=== PATIENT | male | born 1930 | race African-American/Black ===

== ENCOUNTER 2017-05-10 16:11 | Observation (INO) | payer OTHER ==
[2017-05-10] MEDS ORDERED: SODIUM CHLORIDE 0.9% 1000 ML INFUS.BAG IV ONE (16:48)
--- NOTE | 2017-05-10 16:58 | PDOC ---
History of Present Illness - General Chief Complaint: Syncope/Near Syncope Stated Complaint: SYNCOPE Time Seen by Provider: 05/10/17 16:19 History Source: Patient, Family Exam Limitations: Clinical Condition - History of Present Illness Initial Comments: 05/10/17 16:55 87 y/o M with PMH osteoarthritis, prostate CA (s/p radiation seeding), who presents to the ED s/p syncopal episode. As per pt's sister, she was shopping with pt in [employer] this afternoon when he started to c/o dizziness. At the time, pt was also wearing a warm coat. His sister told him to sit down. When his sister returned, pt had slumped over onto the ground and she "thought he had ." He was on the ground for 3-4 minutes "in and out of consciousness, " and was subsequently helped up by [employer] staff. EMS was alerted and on arrival , pt's BP was 130/110. Sister denies head trauma or seizure like activity, but states pt has had decreased fluid intake during the week. Pt denies JOHANSEN, fever, chills, or changes in urinary or bowel function. Pt ambulates on his own at baseline and lives alone in [place]. Over the past week, he has been staying with his sister. PMH: as above PsxH: denies meds: denies allergies: NKDA FH: father- prostate CA, mother- dementia SH: retired; worked for a [employer] in the past. Never smoked. Drank 1 beer /day for many years, unable to quantify. Smoked marijuana intermittently. For updates on pt condition please call Stefanie (niece) cell: [phone] Past History - Past Medical History Allergies/Adverse Reactions: Allergies Allergy/AdvReac Type Severity Reaction Status Date / Time No Known Allergies Allergy Verified 05/10/17 16:23 Home Medications: Ambulatory Orders NK [No Known Home Medication] 05/10/17 COPD: No - Suicide/Smoking/Psychosocial Hx Smoking History: Current every day smoker Number of Cigarettes Smoked Daily: 2 If you are a former smoker, when did you quit?: 0 Information on smoking cessation initiated: No Hx Alcohol Use: No Drug/Substance Use Hx: No Substance Use Type: Marijuana Review of Systems - Review of Systems Able to Perform ROS?: Yes Is the patient limited Bolivian proficient: No Constitutional: Yes: Other (dehydration) Neurological: Yes: Dizziness All Other Systems: Reviewed and Negative *Physical Exam - Vital Signs Last Vital Signs Temp Pulse Resp BP Pulse Ox 97.7 F 90 18 129/75 100 05/10/17 16:11 05/10/17 16:11 05/10/17 16:11 05/10/17 16:11 05/10/17 16:11 - Physical Exam General Appearance: Yes: Nourished, Other (in no acute distress) HEENT: positive: EOMI, DARSHANA Neck: positive: Supple Respiratory/Chest: positive: Lungs Clear, Normal Breath Sounds Cardiovascular: positive: Regular Rhythm, Regular Rate, S1, S2 Vascular Pulses: Dorsalis-Pedis (R): 2+, Doralis-Pedis (L): 2+ Gastrointestinal/Abdominal: positive: Normal Bowel Sounds, Soft Musculoskeletal: positive: Normal Inspection Extremity: positive: Normal Inspection, Normal Range of Motion Integumentary: positive: Dry Neurologic: positive: duty engineer II-XII NML intact, Other (AAO x 2 (self, place)) Heart Score/ECG Review - ECG Impressions Comment:: 05/10/17 17:08 EKG: normal sinus, normal axis, rate ~80 ED Treatment Course - LABORATORY CBC & Chemistry Diagram: 05/10/17 16:54 05/10/17 16:53 Medical Decision Making - Medical Decision Making 05/10/17 17:09 87 y/o M with PMH osteoarthritis, prostate CA (s/p radiation seeding), who presents to the ED s/p syncopal episode. As per pt's sister, she was shopping with pt in [employer] this afternoon when he started to c/o dizziness. Likely vasovagal syncope 2/2 dehydration as pt with dizziness and warm from coat. Unlikely seizure - no seizure like activity witnessed, no post-ictal confusion. Pt status returned to baseline. EKG done to help r/o arrythmia. NSR, no significant changes noted. Will order the following CBC CMP Troponin will give 1L NS and reassess will also gauge pt's safety- if safe to go home if well 05/10/17 17:31 If pt for d/c later, should be able to go home without problem since living with sister would benefit from VNS 05/10/17 17:42 CBC WNL other labs pending 05/10/17 18:08 CMP, trop WNL will check orthostatics, walk pt see if stable - if stable, will check comfort on going home with sister 05/10/17 18:22 Orthostatics (-) after pt hydrated with 1 L 124/75, HR 70 lying down 142/73, 69 HR sitting 126/80, 84 HR standing however pt with unsteady gait, states he does not feel comfortable going home - for obs 05/10/17 18:28 Microblog sent 05/10/17 19:23 Case d/w Dr. Abdi for obs UA added *DC/Admit/Observation/Transfer Diagnosis at time of Disposition: Syncope Qualifiers: Syncope type: vasovagal syncope Qualified Code(s): R55 - Syncope and collapse - Discharge Dispostion Condition at time of disposition: Guarded Admit: Yes - Referrals Referrals: Carol López MD [Primary Care Provider] - - Patient Instructions - Post Discharge Activity
[2017-05-10 17:16] LABS: BASO % 0.4 % (0-2.0); EOS % 0.2 % (0-4.5); HEMATOCRIT 41.5 % (35.4-49); HEMOGLOBIN 14.3 GM/dL (11.7-16.9); LYMPH % 12.5 % (8-40); MCH 33.1 pg (25.7-33.7); MCHC 34.5 g/dl (32.0-35.9); MEAN CELL VOLUME 95.7 fl (80-96); MEAN PLT VOLUME 8.2 fl (7.5-11.1); NEUT % 74.9 % (42.8-82.8); PLATELET COUNT 243 K/MM3 (134-434); RBC 4.34 M/mm3 (4.00-5.60); RDW 14.8 % (11.9-15.9); WHITE BLOOD COUNT 4.4 K/mm3 (4.0-10.0)
[2017-05-10 17:50] LABS: ALBUMIN 3.4 g/dl (3.4-5.0); ANION GAP 13 (8-16); BILIRUBIN,TOTAL 0.5 mg/dL (0.2-1.0); BLOOD UREA NITROGEN 15 mg/dL (7-18); CALCIUM 9.1 mg/dL (8.5-10.1); CHLORIDE 98 mmol/L (98-107); CO2 26 mmol/L (21-32); CREATININE 1.2 mg/dL (0.7-1.3); GLUCOSE,RANDOM 100 mg/dL (74-106); POTASSIUM 4.2 mmol/L (3.5-5.1); SGOT/AST 34 U/L (15-37); SGPT/ALT 18 U/L (12-78); SODIUM 137 mmol/L (136-145); TOT PROT 6.9 g/dl (6.4-8.2)
[2017-05-10 17:52] LABS: ALK PHOS 111 U/L (45-117)
--- NOTE | 2017-05-10 18:11 | PDOC ---
Attending Attestation - HPI HPI: 05/10/17 18:13 The patient is a 87-year-old male with no significant past medical history, who presents to the emergency department s/p syncopal episode. Patient reports that he has not had heat at home recently and is staying with his sister. He reports they went to [facility] today where he began to feel dizzy after walking and eating. As per sister, the patient was wearing a heavy and warm jacket. Sister states the patient sat down while she went to shop, but the patient syncopized and fell to the ground when she returned. The sister states the patient was unresponsive on the ground for a few seconds. He denies any previous history of syncopes. The patient denies chest pain, shortness of breath, or headache. The patient denies fever, chills, nausea, vomit, diarrhea and constipation. The patient denies dysuria, frequency, urgency and hematuria. - Physicial Exam PE: 05/10/17 18:13 Vitals: Triage Vital signs reviewed General Appearance: no acute distress, well nourished well developed, Head: Atraumatic, normocephalic Eyes: Pupils equal reactive round, extraocular movement intact Throat: Posterior oropharynx without erythema, (+) dry mucous membranes Neck: Supple;No Nuchal rigidity Cardiac: Regular rate and rhythm, no murmurs, no rubs, no gallops, Lungs: Clear to auscultation bilateral, good air movement bilaterally, Abdomen: Soft, nondistended, normal bowel sounds, nontender to palpation Extremities: Full range of motion to all extremities, no cyanosis, clubbing, or edema Skin: Warm and dry, no rashes or lesions, no petechiae Neuro: AOX3; Cranial Nerves 2-12 grossly intact, Strength intact to all extremities, Sensation intact to all extremities Psych: normal mood, normal affect <Karen Preciado - Last Filed: 05/10/17 18:13> - Resident Resident Name: Corazon Tovar - ED Attending Attestation I have performed the following: I have examined & evaluated the patient, The case was reviewed & discussed with the resident, I agree w/resident's findings & plan, Exceptions are as noted - Medical Decision Making 05/10/17 18:11 87 years old with no significant past medical history presents to the emergency department with syncopal episode after eating a significant amount of fluid [place] and walking around wearing a heavy jacket. Patient had a classic prodrome of dizziness lightheadedness and feeling hot and sweaty sat down then had a brief few seconds of syncope with spontaneous return vital signs Here in the emergency Department patient has been's resting comfortably not complaining of any symptoms. His EKG with no ST elevations or T-wave inversions no evidence of Brugada WPW or prolonged QT. He has a ventricular rate of 80 with a NV interval of 164 with normal axis normal QT Interpreted by me He was not orthostatic on his vital signs and there is no obvious evidence of dehydration on his laboratory analysis I discussed with the patient observation overnight he feels unsteady and would prefer to be observed. 05/10/17 18:22 <Timo Figueroa - Last Filed: 05/10/17 18:26>
--- NOTE | 2017-05-10 19:47 | PN ---
Teaching Attending Note Name of Resident: Logan Benson ATTENDING PHYSICIAN STATEMENT I saw and evaluated the patient. I reviewed the resident's note and discussed the case with the resident. I agree with the resident's findings and plan as documented. SUBJECTIVE: 87 M with no pmhx. who presents with syncope. States he went to [facility] where he felt dizzy. Notes he felt this way after walking and eating. States he was wearing a heavy jacket/. States sister sat him down and went to shop, but when she returned he had syncopized and fell. Notes he was not responsive for several seconds. States he hasn't been diagnosed with diabetes yet, but feels likel maybe his "sugar" contributed to his Syncope OBJECTIVE: Physical: VS: Vital Signs Period Temp Pulse Resp BP Sys/Scott Pulse Ox Last 24 Hr 97.7 F 69-90 18 124-142/73-80 100 GEN: NAD, Resting in bed, AA0X3 HEENT: NCAT, PERRL, Throat without erythema or exudates CARD: RRR S1, S2 RESP: CTAB ABD: BSx4, NTD to palpation EXT: - C/C/E CBCD WBC 4.4 K/mm3 (4.0-10.0) 05/10/17 16:54 RBC 4.34 M/mm3 (4.00-5.60) 05/10/17 16:54 Hgb 14.3 GM/dL (11.7-16.9) 05/10/17 16:54 Hct 41.5 % (35.4-49) 05/10/17 16:54 MCV 95.7 fl (80-96) 05/10/17 16:54 MCHC 34.5 g/dl (32.0-35.9) 05/10/17 16:54 RDW 14.8 % (11.9-15.9) 05/10/17 16:54 Plt Count 243 K/MM3 (134-434) 05/10/17 16:54 MPV 8.2 fl (7.5-11.1) 05/10/17 16:54 CMP Sodium 137 mmol/L (136-145) 05/10/17 16:53 Potassium 4.2 mmol/L (3.5-5.1) 05/10/17 16:53 Chloride 98 mmol/L (98-107) 05/10/17 16:53 Carbon Dioxide 26 mmol/L (21-32) 05/10/17 16:53 Anion Gap 13 (8-16) 05/10/17 16:53 BUN 15 mg/dL (7-18) 05/10/17 16:53 Creatinine 1.2 mg/dL (0.7-1.3) 05/10/17 16:53 Creat Clearance w eGFR 57.27 (>60) 05/10/17 16:53 Random Glucose 100 mg/dL (74-106) 05/10/17 16:53 Calcium 9.1 mg/dL (8.5-10.1) 05/10/17 16:53 Total Bilirubin 0.5 mg/dL (0.2-1.0) 05/10/17 16:53 AST 34 U/L (15-37) 05/10/17 16:53 ALT 18 U/L (12-78) 05/10/17 16:53 Alkaline Phosphatase 111 U/L (45-117) 05/10/17 16:53 Total Protein 6.9 g/dl (6.4-8.2) 05/10/17 16:53 Albumin 3.4 g/dl (3.4-5.0) 05/10/17 16:53 CARDIAC ENZYMES Troponin I 0.02 ng/ml (0.00-0.05) 05/10/17 16:53 CXR: No Acute Process EKG: NSR, QtC 403 ASSESSMENT AND PLAN: 87 M with no pmhx who presents with loss of concioussness at [facility], being admitted for syncope eval. 1.) Loss of Concioussness - Vasovagal, Cardiogenic, neurogenic - CT HEAD wo Con - Trend Trop/EKG - Echo/Carotid - Orthostatics negative - TSh, B12, Folate - HgbA1c - Fingersticks 2.) Dvt Ppx - SCDS Place in Obs-Tele
--- NOTE | 2017-05-10 23:15 | HP ---
CHIEF COMPLAINT: Syncope PCP: HISTORY OF PRESENT ILLNESS: The patient has early stage alzheimers and has difficulty recalling the events of the day. Part of the following history is taken from the medical record. The patient is an 87 yo m w/ PMH prostate ca s/p radiation and seeding who was brought to the ED after having a syncopal episode. The patient was shopping at [employer] with his sister when he began to feel dizzy. He sat down on a bench and his sister left to finish her shopping. When she returned, she found him slumped over. Per the sister, the patient did not fall and did not hit his head. He was unresponsive and had a waxing and waning consciousness for approx. 3-4 minutes. Patient's sister denies seizure like activity, urinary or fecal incontinence. Patient denies CP, SOB, fevers, chills, nausea, vomiting, diarrhea. Patient does endorse decreased fluid intake over the past few days. Patient lives in [place] alone and does not feel comfortable going back there in his current state. ER course was notable for: (1) Troponin negative x1 (2) ED physician noted good response to IVF, but continued unsteady gait. (3) Recent Travel: none PAST MEDICAL HISTORY: see HPI PAST SURGICAL HISTORY: denies Social History: Smoking: denies Alcohol: drank previously, has since stopped Drugs: denies Family History: non-contributory Allergies No Known Allergies Allergy (Verified 05/10/17 16:23) HOME MEDICATIONS: Home Medications Medication Instructions Recorded NK [No Known Home Medication] 05/10/17 REVIEW OF SYSTEMS CONSTITUTIONAL: Absent: fever, chills, diaphoresis, malaise, loss of appetite, weight change HEENT: Absent: rhinorrhea, nasal congestion, throat pain, throat swelling, difficulty swallowing, mouth swelling, ear pain, eye pain, visual changes CARDIOVASCULAR: Absent: chest pain, syncope, palpitations, irregular heart rate, peripheral edema RESPIRATORY: Absent: cough, shortness of breath, dyspnea with exertion, orthopnea, wheezing, stridor, hemoptysis GASTROINTESTINAL: Absent: abdominal pain, abdominal distension, nausea, vomiting, diarrhea, constipation, melena, hematochezia GENITOURINARY: Absent: dysuria, frequency, urgency, hesitancy, hematuria, flank pain, genital pain MUSCULOSKELETAL: Absent: myalgia, arthralgia, joint swelling, back pain, neck pain SKIN: Absent: rash, itching, pallor HEMATOLOGIC/IMMUNOLOGIC: Absent: easy bleeding, easy bruising, lymphadenopathy, frequent infections ENDOCRINE: Absent: unexplained weight gain, unexplained weight loss, heat intolerance, cold intolerance NEUROLOGIC: Absent: headache, focal weakness or paresthesias, seizure, mental status changes , bladder or bowel incontinence PSYCHIATRIC: Absent: anxiety, depression, suicidal or homicidal ideation, hallucinations. PHYSICAL EXAMINATION Vital Signs - 24 hr 05/10/17 05/10/17 05/10/17 16:11 18:12 18:17 Temperature 97.7 F Pulse Rate 90 Pulse Rate [ 69 Right side Sitting] Pulse Rate [ 84 Right side Standing] Pulse Rate [ 70 70 Right side Supine] Respiratory 18 Rate Blood Pressure 129/75 Blood Pressure 142/73 [Right side Sitting] Blood Pressure 126/80 [Right side Standing] Blood Pressure 124/75 124/75 [Right side Supine] O2 Sat by Pulse 100 Oximetry (%) GENERAL: Awake, alert, and fully oriented, in no acute distress. HEAD: Normal with no signs of trauma. EYES: Pupils equal, round and reactive to light, extraocular movements intact, sclera anicteric, conjunctiva clear. No lid lag. EARS, NOSE, THROAT: oropharynx clear without exudates. Moist mucous membranes. NECK: Normal range of motion, supple without lymphadenopathy, JVD, or masses. LUNGS: Breath sounds equal, clear to auscultation bilaterally. No wheezes, and no crackles. No accessory muscle use. HEART: Regular rate and rhythm, normal S1 and S2 without murmur, rub or gallop. ABDOMEN: Soft, nontender, not distended, normoactive bowel sounds, no guarding, no rebound, no masses. No hepatomegaly or splenomegaly. UPPER EXTREMITIES: 2+ pulses, warm, well-perfused. No cyanosis. No clubbing. No peripheral edema. LOWER EXTREMITIES: 2+ pulses, warm, well-perfused. No calf tenderness. No peripheral edema. NEUROLOGICAL: Cranial nerves II-XII intact. Normal speech. Gait unstable with limp involving left leg. No shuffling. Strength 5/5 in all limbs PSYCHIATRIC: Cooperative. Good eye contact. Appropriate mood and affect. SKIN: Warm, dry, normal turgor, no rashes or lesions noted, normal capillary refill. Laboratory Results - last 24 hr 05/10/17 05/10/17 16:53 16:54 WBC 4.4 RBC 4.34 Hgb 14.3 Hct 41.5 MCV 95.7 MCH 33.1 MCHC 34.5 RDW 14.8 Plt Count 243 MPV 8.2 Neutrophils % 74.9 Lymphocytes % 12.5 Monocytes % 12.0 H Eosinophils % 0.2 Basophils % 0.4 Sodium 137 Potassium 4.2 Chloride 98 Carbon Dioxide 26 Anion Gap 13 BUN 15 Creatinine 1.2 Creat Clearance w eGFR 57.27 Random Glucose 100 Calcium 9.1 Total Bilirubin 0.5 AST 34 ALT 18 Alkaline Phosphatase 111 Troponin I 0.02 Total Protein 6.9 Albumin 3.4 ASSESSMENT/PLAN: The patient is an 87 yo m w/ distant PMH prostate ca who is being admitted for further workup for syncope. #Syncopal episode likely 2/2 vasovagal response r/o cardiac eitology -orthostatics negative in ED -Patient improved after 1L NS in ED -gait remains unstable -EKG shows NSR w/ nonspecific t wave changes -CXR negative -CT head negative -Physical therapy eval; patient may benefit from VNS -Echo in am -carotid duplex -UA -trend trop -B12, folate, A1c in AM #FEN -no fluids -lytes WNL -regular diet #Prophy -SCDs #Dispo -admit to tele Visit type - Emergency Visit Emergency Visit: Yes ED Registration Date: 05/10/17 Care time: The patient presented to the Emergency Department on the above date and was hospitalized for further evaluation of their emergent condition. - New Patient This patient is new to me today: Yes Date on this admission: 05/10/17 - Critical Care Critical Care patient: No Hospitalist Screening - Colonoscopy Questionnaire Colonoscopy Questionnaire: Colonoscopy Questionnaire - Patient: 50 - 75 years old and never had a screening colonoscopy: Unknown History of colon or rectal polyps, or CA: Unknown History of IBD, Crohn's disease or UC: Unknown History of abdominal radiation therapy as a child: Unknown - Relative: 1 with colon or rectal CA, or polyps at age 60 or younger: Unknown Colon or rectal CA diagnosed at age 45 or younger: Unknown Multiple relatives with colon or rectal CA: Unknown - Outcome: Screening Result: Negative Screen
[2017-05-10 23:59] LABS: URINE APPEARANCE CLOUDY; URINE BILIRUBIN NEGATIVE (NEGATIVE); URINE BLOOD NEGATIVE (NEGATIVE); URINE COLOR AMBER; URINE GLUCOSE (UA) NEGATIVE (NEGATIVE); URINE KETONE 1+ (NEGATIVE); URINE NITRITE NEGATIVE (NEGATIVE)
[2017-05-11 00:11] LABS: URINE LEUK ESTERASE 3+ (NEGATIVE); URINE PROTEIN 1+ (NEGATIVE)
[2017-05-11 00:12] LABS: CALCIUM OXALATE CRYSTALS MODERATE /hpf (NONE SEEN); EPI CELLS RARE /HPF (FEW); URINE BACTERIA MODERATE /hpf (NONE SEEN); URINE MUCUS MODERATE
[2017-05-11 07:17] LABS: HEMATOCRIT 40.8 % (35.4-49); HEMOGLOBIN 14.1 GM/dL (11.7-16.9); MCH 33.1 pg (25.7-33.7); MCHC 34.5 g/dl (32.0-35.9); MEAN PLT VOLUME 7.9 fl (7.5-11.1); PLATELET COUNT 207 K/MM3 (134-434); RBC 4.25 M/mm3 (4.00-5.60); RDW 14.6 % (11.9-15.9); WHITE BLOOD COUNT 3.9 K/mm3 (4.0-10.0)
[2017-05-11 07:37] LABS: ALBUMIN 3.4 g/dl (3.4-5.0); ALK PHOS 102 U/L (45-117); ANION GAP 11 (8-16); BILIRUBIN,TOTAL 0.7 mg/dL (0.2-1.0); BLOOD UREA NITROGEN 18 mg/dL (7-18); CALCIUM 8.7 mg/dL (8.5-10.1); CHLORIDE 102 mmol/L (98-107); CO2 25 mmol/L (21-32); CREATININE 1.3 mg/dL (0.7-1.3); GLUCOSE,RANDOM 81 mg/dL (74-106); MAGNESIUM 2.4 mg/dL (1.8-2.4); PHOSPHOROUS 3.9 mg/dL (2.5-4.9); POTASSIUM 4.1 mmol/L (3.5-5.1); SGOT/AST 37 U/L (15-37); SGPT/ALT 19 U/L (12-78); SODIUM 138 mmol/L (136-145); TOT PROT 6.9 g/dl (6.4-8.2)
[2017-05-11] MEDS ORDERED: cefTRIAXone 2 GM/100 ML BAG (PRE-DOCKED) IVPB ONE (08:09)
--- NOTE | 2017-05-11 10:43 | EKG ---
Test Reason : Blood Pressure : / mmHG Vent. Rate : 083 BPM Atrial Rate : 083 BPM P-R Int : 162 ms QRS Dur : 080 ms QT Int : 348 ms P-R-T Axes : 075 014 059 degrees QTc Int : 408 ms NORMAL SINUS RHYTHM NONSPECIFIC T WAVE ABNORMALITY ABNORMAL ECG WHEN COMPARED WITH ECG OF 28-AUG-1997 18:46, NO SIGNIFICANT CHANGE WAS FOUND Confirmed by JOHN FIGUEROA MD ([id number]) on 05/11/2017 10:43:05 AM Referred By: Confirmed By:JOHN FIGUEROA MD
[2017-05-11 13:00] VITALS: BMI 22.6
--- NOTE | 2017-05-11 15:24 | PN ---
Physical Exam: SUBJECTIVE: Patient seen and examined at bedside. No current complaints. No overnight events. No lightheadedness or chest pain. OBJECTIVE: Vital Signs Period Temp Pulse Resp BP Sys/Scott Pulse Ox Last 24 Hr 97.7 F-98.5 F 69-112 15-18 103-146/67-87 97-100 GENERAL: A&Ox3 NEURO: Hyperreflexia in patellar reflexes CARDS: RRR, 2/6 systolic murmur PULM: CTA ABD: Soft, nontender, nondistended, BS present Laboratory Results - last 24 hr 05/10/17 05/10/17 05/10/17 16:53 16:54 23:30 WBC 4.4 RBC 4.34 Hgb 14.3 Hct 41.5 MCV 95.7 MCH 33.1 MCHC 34.5 RDW 14.8 Plt Count 243 MPV 8.2 Neutrophils % 74.9 Lymphocytes % 12.5 Monocytes % 12.0 H Eosinophils % 0.2 Basophils % 0.4 Sodium 137 Potassium 4.2 Chloride 98 Carbon Dioxide 26 Anion Gap 13 BUN 15 Creatinine 1.2 Creat Clearance w eGFR 57.27 Random Glucose 100 Hemoglobin A1c % Calcium 9.1 Phosphorus Magnesium Total Bilirubin 0.5 AST 34 ALT 18 Alkaline Phosphatase 111 Troponin I 0.02 0.02 Total Protein 6.9 Albumin 3.4 Vitamin B12 Urine Color Urine Appearance Urine pH Ur Specific [place] Urine Protein Urine Glucose (UA) Urine Ketones Urine Blood Urine Nitrite Urine Bilirubin Urine Urobilinogen Ur Leukocyte Esterase Urine WBC (Auto) Urine RBC (Auto) Ur Epithelial Cells Calcium Oxalate Crystal Urine Bacteria Urine Mucus 05/10/17 05/11/17 05/11/17 23:45 06:32 06:32 WBC 3.9 L RBC 4.25 Hgb 14.1 Hct 40.8 MCV 96.0 MCH 33.1 MCHC 34.5 RDW 14.6 Plt Count 207 MPV 7.9 Neutrophils % Lymphocytes % Monocytes % Eosinophils % Basophils % Sodium 138 Potassium 4.1 Chloride 102 Carbon Dioxide 25 Anion Gap 11 BUN 18 Creatinine 1.3 Creat Clearance w eGFR 52.22 Random Glucose 81 Hemoglobin A1c % Calcium 8.7 Phosphorus 3.9 Magnesium 2.4 Total Bilirubin 0.7 D AST 37 ALT 19 Alkaline Phosphatase 102 Troponin I Total Protein 6.9 Albumin 3.4 Vitamin B12 Urine Color Т[place]на Urine Appearance Cloudy Urine pH 5.0 Ur Specific [place] 1.026 Urine Protein 1+ H Urine Glucose (UA) Negative Urine Ketones 1+ H Urine Blood Negative Urine Nitrite Negative Urine Bilirubin Negative Urine Urobilinogen 2.0 Ur Leukocyte Esterase 3+ H Urine WBC (Auto) 45 Urine RBC (Auto) 73 Ur Epithelial Cells Rare Calcium Oxalate Crystal Moderate Urine Bacteria Moderate Urine Mucus Moderate 05/11/17 05/11/17 05/11/17 06:32 06:32 06:32 WBC RBC Hgb Hct MCV MCH MCHC RDW Plt Count MPV Neutrophils % Lymphocytes % Monocytes % Eosinophils % Basophils % Sodium Potassium Chloride Carbon Dioxide Anion Gap BUN Creatinine Creat Clearance w eGFR Random Glucose Hemoglobin A1c % 5.5 Calcium Phosphorus Magnesium Total Bilirubin AST ALT Alkaline Phosphatase Troponin I < 0.02 Total Protein Albumin Vitamin B12 479 Urine Color Urine Appearance Urine pH Ur Specific [place] Urine Protein Urine Glucose (UA) Urine Ketones Urine Blood Urine Nitrite Urine Bilirubin Urine Urobilinogen Ur Leukocyte Esterase Urine WBC (Auto) Urine RBC (Auto) Ur Epithelial Cells Calcium Oxalate Crystal Urine Bacteria Urine Mucus ASSESSMENT/PLAN: 87 year old male with a past medical history of prostate ca admitted for syncopal episode #Syncope: likely orthostatic vs vasovagal: improved today, no current -monitor on telemetry for 24 hours for arrhythmia -orthostatics negative in ED -EKG on admission revealed NSR w/ nonspecific t wave changes -CXR negative -CT head negative for acute intracranial pathology -PT request -f/u echo -carotid duplex significant for intimal thickening, multiple plaques in L common carotid but no stenosis -troponin negative -follow A1C level #Bacteriuria: unlikely UTI -2gm ceftriaxone given, no need to give more #FEN -no standing fluids -replete lytes -regular diet #Prophylaxis -SCDs for prophylaxis #Disposition -continue to monitor on tele obs Visit type - Emergency Visit Emergency Visit: No - New Patient This patient is new to me today: Yes Date on this admission: 05/11/17 - Critical Care Critical Care patient: No
--- NOTE | 2017-05-11 16:59 | PN ---
Teaching Attending Note Name of Resident: Arthur Waddell ATTENDING PHYSICIAN STATEMENT I saw and evaluated the patient. I reviewed the resident's note and discussed the case with the resident. I agree with the resident's findings and plan as documented. SUBJECTIVE: No fever or chills. no abd pain. no JOHANSEN. OBJECTIVE: NA D, AAOx3 CV: RRR, no MRG , no JVD Lungs: CTAB Ext: no edema Abd: soft, Nt, ND , NL BS Neuro: EOMI, round equal pupils reactive to light . tongue and uvula at mid line , nl facial sensation . strength 5/5 in upper and lower ext proximally and distally. sensation nl. reflexes 3+ knee jerk ASSESSMENT AND PLAN: 87 y/o man with h/o prstate cancer who presented after a syncopal episode 1- Syncope: nl neuro exam and nl vitals . neg orthostatics. likely vasovagal since he felt light headed with warning can't r/o arrhythmias. unlikely ACS tele ( no events so far ) carotid US and CT head reviewed no hx of seizures . unlikely seizure monitor echo pending 2- asymptomatic pyuria . he denies any sx previously and now. will not treat add sq heparin possible dc tomorrow
[2017-05-11] MEDS: HEPARIN NA (PORCINE) 5,000 UNITS/ML 1ML VIAL SQ SCH (22:29)
[2017-05-12] MEDS: HEPARIN NA (PORCINE) 5,000 UNITS/ML 1ML VIAL SQ SCH ×2 (05:53→13:14)
[2017-05-12 07:46] LABS: HEMATOCRIT 35.3 % (35.4-49); HEMOGLOBIN 12.3 GM/dL (11.7-16.9); MCH 33.3 pg (25.7-33.7); MCHC 34.8 g/dl (32.0-35.9); MEAN CELL VOLUME 95.8 fl (80-96); PLATELET COUNT 193 K/MM3 (134-434); RBC 3.68 M/mm3 (4.00-5.60); RDW 15.1 % (11.9-15.9); WHITE BLOOD COUNT 3.3 K/mm3 (4.0-10.0)
[2017-05-12 08:38] LABS: CALCIUM 7.8 mg/dL (8.5-10.1); CHLORIDE 106 mmol/L (98-107); POTASSIUM 3.8 mmol/L (3.5-5.1); SODIUM 140 mmol/L (136-145)
[2017-05-12 08:42] LABS: ANION GAP 10 (8-16); BLOOD UREA NITROGEN 24 mg/dL (7-18); CO2 24 mmol/L (21-32); CREATININE 1.2 mg/dL (0.7-1.3); GLUCOSE,RANDOM 85 mg/dL (74-106); PHOSPHOROUS 4.1 mg/dL (2.5-4.9)
--- NOTE | 2017-05-12 12:31 | PN ---
Teaching Attending Note Name of Resident: Arthur Waddell ATTENDING PHYSICIAN STATEMENT I saw and evaluated the patient. I reviewed the resident's note and discussed the case with the resident. I agree with the resident's findings and plan as documented. SUBJECTIVE: No fever or chills. has no PC or SOB. per Rn was a little disoriented last night . OBJECTIVE: NAD, AAOx3 CV: RRR, no MRG , no JVD Lungs: CTAB Ext: no edema ASSESSMENT AND PLAN: 87 y/o man with h/o prstate cancer who presented after a syncopal episode 1- Syncope: could be due to orthostatic hypotension ( Ortho VS were done after IVF were given ) . or vasovagal . other etiologies are unlikely echo results reviewed, and d/w Dr. Hancock, bubble study was done accidentally, but there is no shunt 2- Asymptomatic bacteruria . will not treat Dispo: PT eval pending. will dc after that . if he passes PT he will be living with his sister in [place]
[2017-05-12 13:26] VITALS: BP 97/72; PULSE 92; TEMP 98.8
--- NOTE | 2017-05-12 14:21 | DS ---
Physical Exam: SUBJECTIVE: Patient seen and examined at bedside. No current complaints, no events overnight. OBJECTIVE: Vital Signs Period Temp Pulse Resp BP Sys/Scott Pulse Ox Last 24 Hr 98.0 F-99.1 F 72-112 18-18 95-133/59-83 95-99 PHYSICAL EXAM GENERAL: A&Ox3 NEURO: Hyperreflexia in patellar reflexes CARDS: RRR, 2/6 systolic murmur PULM: CTA ABD: Soft, nontender, nondistended, BS present NEURO: Hyperreflexia in b/l lower extremities LABS Laboratory Results - last 24 hr 05/12/17 05/12/17 06:30 06:30 WBC 3.3 L RBC 3.68 L Hgb 12.3 D Hct 35.3 L MCV 95.8 MCH 33.3 MCHC 34.8 RDW 15.1 Plt Count 193 MPV 8.0 Sodium 140 Potassium 3.8 Chloride 106 Carbon Dioxide 24 Anion Gap 10 BUN 24 H D Creatinine 1.2 Random Glucose 85 Calcium 7.8 L Phosphorus 4.[address] HEAD (05/10/17): No acute intracranial hemorrhage, mass effect or hydrocephalus. No compelling evidence of acute transcortical infarction at this time. MRI is more sensitive in detecting acute infarction. Generalized, age appropriate volume loss and moderate microvascular ischemic changes in the cerebral white matter. CAROTID DOPPLER 05/10/17: Significant intimal thickening with multiple small plaques in the right and small to moderate sized plaques in the left common carotid artery as well as intimal thickening and small plaques at the common carotid bifurcation and bulb, bilaterally without evidence of hemodynamically significant stenosis, bilaterally. CXR 05/10/17: No evidence of acute infiltrate or pleural effusion. ECHOCARDIOGRAM: LV normal, borderline LVH, Grade I diastolic dysfunction ( abnormal relaxation pattern), LV wall motion normal, RVSF normal, RV normal in size, trace mitral regurg, moderate tricuspid regurg, RVSP 30-40mmhg, no aortic stenosis, no effusion, EF 55.8% HOSPITAL COURSE: Date of Admission:05/10/17 87 year old male with a past medical history prostate ca s/p radiation and seeding who was brought to the ED after having a syncopal episode. The patient was shopping at [employer] with his sister when he began to feel dizzy. He sat down on a bench and his sister left to finish her shopping. When she returned, she found him slumped over. Per the sister, the patient did not fall and did not hit his head. He was unresponsive and had a waxing and waning consciousness for approx. 3-4 minutes. Patient's sister denies seizure like activity, urinary or fecal incontinence. Patient lives in [place] alone and does not feel comfortable going back there in his current state. In the ED, patient had negative CT head and negative carotid doppler. CXR was negative. he was given a 1L bolus of fluids. Orthostatics were negative. Echocardiogram was done and did not reveal any wall abnormalities, relevant valve abnormalities, and did not reveal reduced EF (55.8%). It was noted on his physical exam that he has 4/4 reflexes in b/l lower extremities without any pain in the legs or back. Patient was monitored on telemetry without any arrhythmias. He walked 200 feet with PT and was discharged home with instructions to see the limited radiology technician and the neurologist to work up his hyperreflexia. Date of Discharge: 05/12/17 Minutes to complete discharge: 35 Discharge Summary Reason For Visit: SYNCOPE Condition: Stable - Instructions Diet, Activity, Other Instructions: You were admitted to the hospital for the evaluation of syncopal episode ( passing out) The tests we performed (CT head, echocardiogram, carotid doppler) did not reveal any significant disease process that would cause you to pass out. We noticed that you have strong reflexes in your legs. We would like you to see a neurologist to evaluate this finding. Medical Recommendations: -Drink plenty of water to stay hydrated. Occasionally being dehydrated can lead you to be lightheaded and can cause a person to pass out. -Don't stand up from a sitting position too quickly, make sure to stand slowly from a sitting position to avoid getting lightheaded Referrals: -Make an appointment with your primary care physician within 1 week of discharge -Make an appointment with the limited radiology technician Dr. Ackerman within 1 month of discharge -Make an appointment with the neurologist Dr. Trotter within 1 month of discharge -All of their office addresses and phone numbers are listed in the discharge packet If you experience more episodes of passing out, chest pain, shortness of breath, nausea, vomiting, diarrhea, please return to the emergency room immediately Referrals: Kerry Ackerman MD [Staff Physician] - 1 Month Kash Trotter MD [Staff Physician] - 1 Month Carol López MD [Primary Care Provider] - 1 Week Disposition: HOME - Home Medications Comprehensive Discharge Medication List: Ambulatory Orders Multivit-Min/Iron Fum/Folic AC [Bjtdd-Partnts-Brynvzwe Tablet] 1 tab PO DAILY This patient is new to me today: No Emergency Visit: No Critical Care patient: No - Discharge Referral Referred to [facility] Med [facility] No
== END 2017-05-12 18:06 | disposition home or self-care (01) ==
LOC: JER 16:11 → JERBED 19:30 → J4S 05-11 14:35
PROVIDERS: ADMIT Internal Medicine; ATTEND Internal Medicine
PROC: 3E03329 Introduction of Other Anti-infective into Peripheral Vein, Percutaneous Approach (ICD-10-PCS; principal; 2017-05-10)
PROC: 3E0337Z Introduction of Electrolytic and Water Balance Substance into Peripheral Vein, Percutaneous Approach (ICD-10-PCS; 2017-05-10)
PROC: 3E013GC Introduction of Other Therapeutic Substance into Subcutaneous Tissue, Percutaneous Approach (ICD-10-PCS; 2017-05-10)
DX: R55 Syncope and collapse (principal); N39.0 Urinary tract infection, site not specified; F17.210 Nicotine dependence, cigarettes, uncomplicated; M19.90 Unspecified osteoarthritis, unspecified site; G30.9 Alzheimer's disease, unspecified; F02.80 Dementia in other diseases classified elsewhere, unspecified severity, without behavioral disturbance, psychotic disturbance, mood disturbance, and anxiety; Z85.46 Personal history of malignant neoplasm of prostate; Z92.3 Personal history of irradiation
CPT/HCPCS: 36415; 70450-TC; 71045-TC-FY; 80048; 80053; 81003; 81015; 82607; 82747; 83036; 83735; 84100; 84484; 85014; 85025; 85027; 87086; 87186; 93005; 93010; 93306-TC; 93880-TC; 96372; 96374; 97116-GP; 97161-GP; 99285-25; G0378; J1644